=== PATIENT | female | born 1985 | race Two or more races ===

== ENCOUNTER 2018-09-01 22:59 | Emergency (ER) | payer BC, MEDICAID ==
[~2018-09-01] VITALS: Ht 162.6 cm; Wt 112.9 kg
[2018-09-01 23:25] VITALS: BP 141/78
== END 2018-09-02 00:13 | disposition home or self-care (01) ==
LOC: ER 23:07
DX: J06.9 Acute upper respiratory infection, unspecified (principal)
CPT/HCPCS: Z7502